=== PATIENT | male | born 1950 | race Caucasian/White ===

== ENCOUNTER → 2019-07-30 | Outpatient (CLI) | payer OTHER ==
--- NOTE | 2019-07-30 18:12 | XR ---
EXAMINATION TYPE: XR cervical spine comp DATE OF EXAM: 07/30/2019 COMPARISON: None HISTORY: 59-year-old male cervicalgia, neck pain TECHNIQUE: 5 views FINDINGS: Uncovertebral joint and facet arthropathy, greatest in the mid to lower cervical spine, left greater than right. Moderate disc/endplate degenerative change throughout. Reversal of the normal cervical lo rdosis. Grade 1 anterolisthesis at C7-T1. No predental space widening or prevertebral soft tissue swe lling. Limited odontoid view. IMPRESSION: Moderate multilevel spondylotic change. Multilevel left-sided bony neuroforaminal narrowing greater t brewer the right side. Reversal of the normal cervical lordosis could be positional or due to muscle spa sm. Degenerative grade 1 anterolisthesis at C7-T1.
== END | disposition home or self-care (01) ==
LOC: RADXRYALE 16:44
PROVIDERS: ATTEND Nurse Practitioner
DX: M48.02 Spinal stenosis, cervical region (principal); M43.12 Spondylolisthesis, cervical region; M47.812 Spondylosis without myelopathy or radiculopathy, cervical region
CPT/HCPCS: 72050

== ENCOUNTER → 2020-01-27 | Outpatient (CLI) | payer OTHER ==
--- NOTE | 2020-01-27 08:37 | US ---
EXAMINATION TYPE: US abdomen complete DATE OF EXAM: 01/27/2020 COMPARISON: NONE CLINICAL HISTORY: R10.12 LEFT UPPER QUADRANT PAIN. LUQ pain. EXAM MEASUREMENTS: Liver Length: 15.0 cm Gallbladder Wall: 0.2 cm CBD: 0.3 cm Spleen: 9.1 cm Right Kidney: 9.9 x 4.2 x 4.2 cm Left Kidney: 9.9 x 4.6 x 4.8 cm Pancreas: Tail obscured by overlying bowel gas Liver: wnl Gallbladder: wnl Evidence for sonographic Perrin's sign: neg CBD: wnl Spleen: wnl Right Kidney: wnl Left Kidney: wnl Upper IVC: wnl Abd Aorta: proximal obscured by overlying bowel gas The liver is homogenous. The intrahepatic portion of the IVC and proximal abdominal aorta are within normal limits. There is no evidence of cholelithiasis. Common bile duct is unremarkable. The visu alized portions of the pancreas are homogenous. The spleen is unremarkable. Kidneys are symmetric a nd free of hydronephrosis. No renal lesions are seen. IMPRESSION: Unremarkable abdominal ultrasound other than obscuration of the pancreatic tail and proxi mal aorta by overlying bowel gas.
== END | disposition home or self-care (01) ==
LOC: RADUSWWP 07:01
PROVIDERS: ATTEND Family Medicine
DX: R10.12 Left upper quadrant pain (principal)
CPT/HCPCS: 76700

== ENCOUNTER 2023-05-22 11:30 | Day surgery (SDC) | payer MEDICARE ==
[2023-05-16 14:43] VITALS: BMI 29.2
[~2023-05-22 11:30] MED LIST: LACTATED RINGERS 1,000 ML IV SCH; LIDOCAINE 1% (10MG/ML) FOR IV START INTRADERMA PRN
[2023-05-22 12:47] VITALS: TEMP 67
[2023-05-22] MEDS ORDERED: PROPOFOL 10 MG/ML 20 ML VIAL IV ONE (13:30)
[2023-05-22] MEDS ORDERED: LIDOCAINE 2% INJ 20 MG/ML (2 ML VIAL) ONE (13:30)
--- NOTE | 2023-05-22 13:48 | P.PCN ---
Date of Procedure: 05/22/23 Procedure(s) Performed: BRIEF HISTORY: Patient is a 73-year-old pleasant white male scheduled for an elective colonoscopy as a part of screening for colon cancer PROCEDURE PERFORMED: Colonoscopy. PREOPERATIVE DIAGNOSIS: Screening for colon cancer. IV sedation per Anesthesia. PROCEDURE: After informed consent was obtained, the patient, was brought into the endoscopy unit. IV sedation was administered by Anesthesia under continuous monitoring. Digital rectal examination was normal. Initially the Olympus CF-160 flexible video colonoscope was then inserted in the rectum, gradually advanced into the cecum without any difficulty. Careful examination was performed as the scope was gradually being withdrawn. Ileocecal valve and the appendiceal orifice were visualized and appeared normal. Prep was excellent. Mucosa of the cecum, ascending colon, transverse colon, descending colon, sigmoid colon, and rectum appeared normal. Retroflexion was performed in the rectum and no lesions were seen. The patient tolerated the procedure well. IMPRESSION: Normal-appearing colon from rectum to cecum with no evidence of colorectal neoplasia . RECOMMENDATIONS: Findings of this examination were discussed with the patient as well as his family. He was advised to have a repeat screening colonoscopy in 10 years..
[2023-05-22 14:02] VITALS: RESP 16
[2023-05-22 14:07] VITALS: BP 168/93; PULSE 64
== END 2023-05-22 14:31 | disposition home or self-care (01) ==
LOC: ORWHC2ENDO 11:30
PROVIDERS: ATTEND Internal Medicine Gastroenterology
DX: Z12.11 Encounter for screening for malignant neoplasm of colon (principal); I10 Essential (primary) hypertension; E78.5 Hyperlipidemia, unspecified; Z98.890 Other specified postprocedural states; Z79.899 Other long term (current) drug therapy
CPT/HCPCS: J2704; J2001; G0105; 45378

== ENCOUNTER → 2024-03-24 | Outpatient (CLI) | payer MEDICARE ==
--- NOTE | 2024-03-24 08:12 | US ---
EXAMINATION TYPE: US Aorta Screening DATE OF EXAM: 03/24/2024 COMPARISON: US 01/27/2020 CLINICAL INDICATION: Male, 73 years old with history of Z13.6 ENCOUNTER FOR SCREENING FOR CARDIOVASCU LAR D; Prior smoker, hypertension, hyperlipidemia. TECHNIQUE: Multiple sonographic images of the abdominal aorta are obtained. 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 Iliac arteries were obscured. Proximal and mid segme nt appears ectatic. IMPRESSION: No evidence for aortic aneurysm. Mild ectasia up to 2.9 cm in the proximal aorta which could be gela l patient's anatomy.
== END | disposition home or self-care (01) ==
LOC: RADUSWWP 07:07
PROVIDERS: ATTEND Family Medicine
DX: Z13.6 Encounter for screening for cardiovascular disorders (principal); I77.811 Abdominal aortic ectasia; I10 Essential (primary) hypertension; E78.5 Hyperlipidemia, unspecified; Z87.891 Personal history of nicotine dependence
CPT/HCPCS: 76706